=== PATIENT | male | born 1985 | race Caucasian/White ===

== ENCOUNTER → 2020-07-20 | Outpatient (CLI) | payer SELFPAY ==
[~2020-07-20] MED LIST: CLARITIN10 MG PO; EPI EZ PEN1 MG/ML IM; KEFLEX500 MG PO; MEDROL DOSEPAK4 MG PO; MOTRIN800 MG PO; NKHM
== END | disposition home or self-care (01) ==
LOC: COVID19 09:09
PROVIDERS: ATTEND Internal Medicine
DX: Z20.822 Contact with and (suspected) exposure to COVID-19 (principal)

== ENCOUNTER 2022-01-07 13:06 | Emergency (ER) | payer OTHER ==
[~2022-01-07] VITALS: Wt 95.3 kg
[2022-01-07 14:32] VITALS: BP 116/55
[2022-01-07 14:40] VITALS: BP 127/70
[2022-01-07 14:52] VITALS: BP 113/67
[2022-01-07 15:10] VITALS: BP 116/60
[2022-01-07 15:22] VITALS: BP 125/61
== END 2022-01-07 14:08 | disposition home or self-care (01) ==
LOC: ED 13:06
DX: T18.128A Food in esophagus causing other injury, initial encounter (principal); Y92.89 Other specified places as the place of occurrence of the external cause

== ENCOUNTER → 2024-02-10 | Outpatient (CLI) | payer OTHER ==
[2024-02-10 15:19] LABS: BASO % 0.5 % (0.0-1.0); EOS # 0.3 10*3/uL (0.0-0.4); EOS % 4.9 % (1.0-4.0); HEMATOCRIT 46.7 % (42.0-52.0); LYMPH # 1.8 10*3/uL (1.3-4.4); LYMPH % 28.4 % (27.0-41.0); MEAN CELL VOLUME 86.3 fl (80.0-94.0); MEAN CORPUSCULAR HGB 30.1 pg (27.0-31.0); MEAN CORPUSCULAR HGB CONC 34.9 g/dl (33.0-37.0); MEAN PLATELET VOLUME 10.1 fl (9.6-12.3); MONO # 0.4 10*3/uL (0.1-1.0); MONO % 6.3 % (3.0-9.0); NEUT # 3.8 10*3/uL (2.3-7.9); NEUT % 59.6 % (47.0-73.0); PLATELET COUNT AUTOMATED 222 10*3/uL (130-400); RED BLOOD COUNT 5.41 10*6/uL (4.50-5.90); RED CELL DISTRI WIDTH 12.9 % (0-14.5); WHITE BLOOD COUNT 6.3 10*3/uL (4.8-10.8)
[2024-02-10 15:42] LABS: ALKALINE PHOSPHATASE 65 U/L (46-116); BUN 10 mg/dl (9-23); CHLORIDE 105 mmol/L (98-107); CHOLESTEROL 140 mg/dL (<200); LDL CHOLESTEROL 79 mg/dL (9-159); POTASSIUM 3.7 mmol/L (3.4-5.1); SGPT/ALT 39 U/L (5-49); TOTAL PROTEIN 7.2 gm/dL (6.0-8.0); TRIGLYCERIDES 71 mg/dl (<150)
[2024-02-10 16:17] LABS: VITAMIN D, 25-HYDROXY 70.2 ng/mL (30-100)
== END | disposition home or self-care (01) ==
LOC: LAB 15:04
PROVIDERS: ATTEND Nurse Practitioner
DX: I10 Essential (primary) hypertension (principal); R53.83 Other fatigue; E78.5 Hyperlipidemia, unspecified

== ENCOUNTER 2024-06-17 19:20 | Emergency (ER) | payer OTHER ==
[2024-06-17] MEDS ORDERED: Glucagon Hydrochloride 1 MG SYR IV ONE ×2 (19:50→20:45)
[2024-06-17] MEDS ORDERED: IOHEXOL 300 MG/ML 100 ML VIAL IV ONE (21:15)
[2024-06-17 21:29] LABS: BASO # 0.1 10*3/uL (0.0-0.1); BASO % 0.3 % (0.0-1.0); EOS # 0.2 10*3/uL (0.0-0.4); EOS % 1.6 % (1.0-4.0); HEMATOCRIT 46.1 % (42.0-52.0); MEAN CELL VOLUME 86.8 fl (80.0-94.0); MEAN CORPUSCULAR HGB 29.4 pg (27.0-31.0); MEAN CORPUSCULAR HGB CONC 33.8 g/dl (33.0-37.0); MEAN PLATELET VOLUME 10.2 fl (9.6-12.3); MONO # 0.8 10*3/uL (0.1-1.0); MONO % 5.3 % (3.0-9.0); NEUT # 12.3 10*3/uL (2.3-7.9); NEUT % 82.7 % (47.0-73.0); PLATELET COUNT AUTOMATED 276 10*3/uL (130-400); RED BLOOD COUNT 5.31 10*6/uL (4.50-5.90); RED CELL DISTRI WIDTH 12.6 % (0-14.5); WHITE BLOOD COUNT 14.9 10*3/uL (4.8-10.8)
[2024-06-17] MEDS ORDERED: IOHEXOL 300 MG/ML 100 ML VIAL ONE (21:37)
[2024-06-17 21:47] LABS: BUN 10 mg/dl (9-23); CHLORIDE 104 mmol/L (98-107)
[2024-06-17] MEDS ORDERED: Ondansetron Hydrochloride 4 MG/2 ML VIAL IV ONE (23:10)
[2024-06-17] MEDS ORDERED: methylPREDNISolone sod succ 125 MG VIAL IV ONE (23:10)
[2024-06-17] MEDS ORDERED: Ondansetron4 MG PO (23:47)
== END 2024-06-18 00:01 | disposition home or self-care (01) ==
LOC: ED 19:20
PROVIDERS: Nurse Practitioner Family
DX: T18.128A Food in esophagus causing other injury, initial encounter (principal); E87.6 Hypokalemia; J45.909 Unspecified asthma, uncomplicated; Z86.16 Personal history of COVID-19; W44.F3XA Food entering into or through a natural orifice, initial encounter; Y93.89 Activity, other specified; Y92.89 Other specified places as the place of occurrence of the external cause; Y99.8 Other external cause status

== ENCOUNTER 2024-09-07 09:56 | Emergency (ER) | payer OTHER ==
[~2024-09-07] VITALS: Ht 182.8 cm; Wt 92.5 kg
[~2024-09-07 09:56] MED LIST changes: +Ondansetron4 MG PO
[2024-09-07] MEDS ORDERED: Acetaminophen/Oxycodone 5 MG/325 MG TABLET PO ONE (10:20)
[2024-09-07] MEDS ORDERED: Bacitracin Zinc/Neomycin/Pol 0.9 GM PACKET T ONE (10:35)
[2024-09-07] MEDS ORDERED: PERCOCET 5-3251 EACH PO (10:48)
[2024-09-07] MEDS ORDERED: [UNRECOGNIZED DRUG - REMARK] TD (10:48)
[2024-09-07] MEDS ORDERED: BACITRAYCIN PLU28 GM TD (10:48)
[2024-09-07] MEDS ORDERED: Bacitracin Zinc/Neomycin/Pol 15 GM TUBE T ONE (10:55)
== END 2024-09-07 10:54 | disposition home or self-care (01) ==
LOC: ED 09:56
DX: T22.212A Burn of second degree of left forearm, initial encounter (principal); T23.202A Burn of second degree of left hand, unspecified site, initial encounter; X08.8XXA Exposure to other specified smoke, fire and flames, initial encounter; Y93.89 Activity, other specified; Y92.69 Other specified industrial and construction area as the place of occurrence of the external cause; Y99.0 Civilian activity done for income or pay